=== PATIENT | female | born 1975 | race Two or more races ===

== ENCOUNTER 2023-04-01 12:50 | Emergency (ER) | payer OTHER ==
[~2023-04-01] VITALS: Ht 172.7 cm; Wt 72.6 kg
[2023-04-01] MEDS ORDERED: MIRALAX510 GM (13:21)
[2023-04-01] MEDS ORDERED: CIRUELAX (13:21)
[2023-04-01 17:42] LABS: HEMATOCRIT 39.8 % (36.0-45.00); HEMOGLOBIN 13.1 g/dL (12.0-15.00); MEAN CELL VOLUME 86.7 fL (80.00-100.00); MEAN CORPUSCULAR HEMOGLOBIN 28.6 pg (27.00-32.0); PLATELET COUNT 259 K/uL (150-450); RED CELL DISTRIBUTION WIDTH 13.2 % (11.5-14.5)
[2023-04-01 17:44] LABS: PH,URINE 6.5 (5.0-8.0); URINE APPEARANCE Clear; URINE BILIRRUBIN Negative (NEGATIVE); URINE BLOOD Negative; URINE COLOR Yellow; URINE GLUCOSE Negative (NEGATIVE); URINE LEUKOCYTE Moderate; URINE NITRATE Negative; URINE PROTEIN Negative (NEGATIVE)
[2023-04-01 17:48] LABS: URINE BACTERIA 202.7 uL (0.0-1933); URINE EPITHELIAL CELLS 13.4 uL (0.0-38.8); URINE RBC 4.1 uL (0.0-20.8); URINE WBC 62.1 uL (0.0-23.2)
[2023-04-01 18:06] LABS: CREATININE SERUM 0.72 mg/dL (0.55-1.02); GFR 86.45; POTASSIUM 4.32 mEq/L (3.5-5.1)
== END 2023-04-01 19:33 | disposition home or self-care (01) ==
LOC: ER 12:50
PROVIDERS: General Practice
DX: R10.32 Left lower quadrant pain (principal)